=== PATIENT | male | born 1995 | race Caucasian/White ===

== ENCOUNTER 2019-09-22 12:45 | Emergency (ER) | payer OTHER ==
[~2019-09-22] VITALS: Ht 167.6 cm; Wt 54.4 kg
[~2019-09-22 12:45] MED LIST: AZITHROMYC200 MG/51 PO; AZITHROMYC200 MG/52 PO; FLONASE 0.05%50 MCG NS; NOHOMEMEDICATIONS
[2019-09-22 13:10] LABS: URINE BILIRUBIN NEGATIVE (Negative); URINE BLOOD NEGATIVE (Negative); URINE CLARITY CLEAR; URINE COLOR YELLOW; URINE GLUCOSE-RANDOM NEGATIVE (Negative); URINE KETONES 2+ (Negative); URINE LEUKOCYTES-REFLEX NEGATIVE (Negative); URINE NITRITE-REFLEX NEGATIVE (Negative); URINE PROTEIN NEGATIVE (Negative); URINE UROBILINOGEN 0.2 E.U./dl (0.2-1.0)
[2019-09-22 13:27] LABS: ABSOLUTE LYMPHOCYTES 1.5 thou/uL (0.8-5.3); ABSOLUTE MONOCYTES 0.8 thou/uL (0.0-1.2); BASOPHILS 0.3 %; EOSINOPHILS 0.1 %; HEMATOCRIT 47.3 % (42.0-52.0); HEMOGLOBIN 16.7 gm/dL (14.0-18.0); LYMPHOCYTES 14.8 %; MCH 31.3 pg (26.0-34.0); MCHC 35.3 g/dL (28.0-37.0); MCV 88.7 fL (80.0-100.0); MONOCYTES 7.5 %; MPV 8.1 fl. (7.2-11.1); NUCLEATED RBCS 0 /100WBC; PLATELET COUNT* 213 thou/uL (150-400); POLYS 77.3 %; RBC 5.33 mil/uL (4.50-6.00); RDW-CV 14.4 % (10.5-14.5); WBC 10.3 thou/uL (4.0-11.0)
[2019-09-22 13:35] LABS: CALCIUM 9.2 mg/dL (8.5-10.1); CREATININE 1.2 mg/dL (0.6-1.3); POTASSIUM 3.1 mmol/L (3.5-5.1)
[2019-09-22 13:39] LABS: TOTAL BILIRUBIN 1.7 mg/dL (<0.1-1.0)
[2019-09-22 14:35] VITALS: BP 120/70
--- NOTE | 2019-09-23 10:42 | EKG ---
[place] [address] ELECTROCARDIOGRAM REPORT Name: VICENTE LAGUNA JR Room: [facility]#: [id number] Admission: 09/22/19 Attend Phys: Discharge: 09/22/19 Date of : [birth year] Date of Service: 09/22/19 1319 Report #: [id number] THIS REPORT FOR: //name// [facility] ED Test Date: 2019-09-22 Test Time: 13:19:18 Pat Name: VICENTE LUZ ELENA Department: Room: Gender: Obstetrician/Gynecologist: [facility] : 1995 Requested By: Pearl Patel Order Number: [id number] MD: Chris Campuzano Measurements Intervals [place] Rate: 117 P: 74 DE: 112 QRS: 86 QRSD: 91 T: 28 QT: 314 QTc: 438 Interpretive Statements Sinus tachycardia Baseline wander in lead(s) V1,V2,V3,V4 Compared to ECG 12/07/2009 15:27:56 Sinus rhythm no longer present Electronically Signed On 09-23-2019 10:41:49 CDT by Chris Campuzano [email or web address] <ELECTRONICALLY SIGNED> By: Chris Campuzano MD, [facility] 09/23/19 1041 1319 1319 Chris Campuzano MD, [facility] /EPI
== END 2019-09-22 14:36 | disposition home or self-care (01) ==
LOC: M.ERS 12:45
PROVIDERS: Physician Assistant
DX: E87.6 Hypokalemia (principal); F40.00 Agoraphobia, unspecified; R07.89 Other chest pain; R10.13 Epigastric pain; Z88.1 Allergy status to other antibiotic agents